=== PATIENT | female | born 2000 | race Caucasian/White ===

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

== ENCOUNTER 2021-09-13 18:36 | Emergency (ER) | payer OTHER ==
[~2021-09-13] VITALS: Ht 157.5 cm; Wt 81.6 kg
[2021-09-13 18:54] VITALS: BP 126/71
--- NOTE | 2021-09-13 20:21 | NUR ---
CALLED FOR TRIAGE NOT IN THE WAITING ROOM.
== END 2021-09-13 20:29 | disposition left against medical advice (07) ==
LOC: ER 18:36
DX: Z53.21 Procedure and treatment not carried out due to patient leaving prior to being seen by health care provider (principal); M25.571 Pain in right ankle and joints of right foot

== ENCOUNTER 2022-08-12 19:03 | Emergency (ER) | payer OTHER ==
[~2022-08-12] VITALS: Ht 157.5 cm; Wt 73.9 kg
--- NOTE | 2022-08-12 19:05 | NUR ---
C/O SORE THROAT X 2 WEEKS. TAKING AMOXICILLIN. PATIENT IS AAOX4. PLACED IN BED 19. VITALS CHECKED.
--- NOTE | 2022-08-12 20:39 | NUR ---
RAPID STREP TEST DONE AND SENT TO LAB
--- NOTE | 2022-08-12 20:44 | NUR ---
ELECTRONIC MAINTENANCE SUPERVISOR AT BEDSIDE FOR BLOOD DRAW.
[2022-08-12 21:35] LABS: MONOTEST NEGATIVE (NEGATIVE)
[2022-08-12] MEDS ORDERED: METH4TAB3 PO (22:22)
--- NOTE | 2022-08-12 22:38 | NUR ---
Patient discharged to home in stable condition. Written and verbal after care instructions given. Patient verbalizes understanding of instruction.
[2022-08-12 22:46] VITALS: BP 130/84
== END 2022-08-12 22:47 | disposition home or self-care (01) ==
LOC: ER 19:04
DX: J03.90 Acute tonsillitis, unspecified (principal)
CPT/HCPCS: 36415; 86308-TC; 86403-TC; 87070-TC

== ENCOUNTER 2023-10-06 23:42 | Emergency (ER) | payer OTHER ==
[~2023-10-06] VITALS: Ht 157.5 cm; Wt 71.2 kg
[~2023-10-06 23:42] MED LIST: METH4TAB3 PO
[2023-10-07 02:00] VITALS: BP 130/88; TEMP 98; O2SAT 98
== END 2023-10-07 02:01 | disposition home or self-care (01) ==
LOC: ER 23:47
DX: K12.0 Recurrent oral aphthae (principal); Z90.89 Acquired absence of other organs; Z20.822 Contact with and (suspected) exposure to COVID-19
CPT/HCPCS: 99283; 87426; 87880; C9803; 86403-TC

== ENCOUNTER 2023-10-30 09:29 | Emergency (ER) | payer OTHER ==
[~2023-10-30] VITALS: Ht 157.5 cm; Wt 72.6 kg
[2023-10-30 10:00] VITALS: BP 127/88; TEMP 98.2
[2023-10-30 12:16] VITALS: O2SAT 99
== END 2023-10-30 12:17 | disposition home or self-care (01) ==
LOC: ER 09:29
DX: O26.891 Other specified pregnancy related conditions, first trimester (principal); S90.32XA Contusion of left foot, initial encounter; Z98.890 Other specified postprocedural states; Z79.899 Other long term (current) drug therapy; W17.89XA Other fall from one level to another, initial encounter; Y93.89 Activity, other specified; Y92.89 Other specified places as the place of occurrence of the external cause; Y99.8 Other external cause status
CPT/HCPCS: 73630-TC